=== PATIENT | male | born 1995 | race Caucasian/White ===

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

== ENCOUNTER → 2019-01-18 | Outpatient (CLI) | payer BC ==
--- NOTE | 2019-01-18 11:51 | US ---
EXAMINATION TYPE: US scrotum with doppler. Grayscale and color Doppler Duplex imaging performed of t he scrotum. DATE OF EXAM: 01/18/2019 COMPARISON: NONE CLINICAL HISTORY: N50.812 left testicular pain. Pain left testicle x 1 week EXAM MEASUREMENTS: TESTICLES: Right Testicle: 4.1 x 2.0 x 2.3 cm Left Testicle: 3.9 x 2.2 x 2.6 cm EPIDIDYMIS HEAD: Right Epididymis: 0.9 x 0.9 x 1.3 cm Left Epididymis: 1.2 x 1.1 x 1.3 cm Doppler performed to assess for testicular vascularity; good bilateral color flow and waveforms are s een. There is no evidence of testicular torsion. Presence of hydroceles: right 4.0cm with internal debris Presence of varicoceles: prominent vessels seen superior to left testicle Left epididymis: 0.7 x 0.6 x 0.7cm cyst IMPRESSION: 1. No sonographic evidence of epididymoorchitis in this patient with left testicular pain. 2. Left-sided varicoceles. 3. Small right hydrocele does appear located with internal debris. 4. Benign-appearing simple 7 mm left epididymal cyst.
== END | disposition home or self-care (01) ==
LOC: RADUSWWP 10:45
PROVIDERS: ATTEND Family Medicine
DX: I86.1 Scrotal varices (principal)
CPT/HCPCS: 76870; 93975